=== PATIENT | female | born 1995 ===

== ENCOUNTER 2017-05-06 14:16 | Emergency (ER) | payer BC ==
[2017-05-06 14:22] VITALS: TEMP 97.3; O2SAT 100
--- NOTE | 2017-05-06 14:32 | ED PDOC ---
HPI: Abdomen Time Seen by Provider: 05/06/17 14:32 Chief Complaint (Nursing): Abdominal Pain Chief Complaint (Provider): abd pain History Per: Patient Additional Complaint(s): 22-year-old female presents to emergency department with abdominal pain, nausea , vomiting and diarrhea that started yesterday. Patient was evaluated this morning at urgent care center and was told to come to ER for possible appendicitis. Patient states that yesterday pain was localized to periumbilical region and now has traveled to right lower quadrant. She denies any known fever. Patient has no appetite and is unable to keep any liquids or solids down. Pain as an 8 out of 10. She denies any urinary symptoms. Past Medical History Reviewed: Historical Data, Nursing Documentation, Vital Signs Vital Signs: Last Vital Signs Temp 97.3 F L 05/06/17 14:22 Pulse 94 H 05/06/17 14:22 Resp 21 05/06/17 14:22 BP 140/71 05/06/17 14:22 Pulse Ox 100 05/06/17 15:49 - Medical History PMH: Anxiety, Asthma Other PMH: endometriosis - Surgical History Surgical History: Cholecystectomy - Family History Family History: States: No Known Family Hx - Living Arrangements Living Arrangements: With Family - Social History Current smoker - smoking cessation education provided: No Alcohol: None Drugs: Denies - Home Medications Home Medications: Ambulatory Orders Medication Instructions Recorded Albuterol Sulfate [Proventil Hfa] 2 puff IH Q6H PRN 03/12/15 Amoxicillin/Clavulanate [Augmentin 1 tab PO Q12 #14 tab 03/14/15 875 MG-125 MG] oxyCODONE/Acetaminophen [Percocet 1 tab PO Q4 PRN #0 tab 03/14/15 5/325 mg Tab] Ondansetron [Zofran Odt] 4 mg PO ASDIR PRN #10 odt 05/06/17 - Allergies Allergies/Adverse Reactions: Allergies Allergy/AdvReac Type Severity Reaction Status Date / Time apple Allergy RASH Verified 05/06/17 14:23 corn Allergy RASH Verified 05/06/17 14:23 latex Allergy URTICARIA Verified 05/06/17 14:23 peanut Allergy ANAPHYLAXIS Verified 05/06/17 14:23 shellfish derived Allergy SHORTNESS Verified 05/06/17 14:23 OF BREATH Review of Systems ROS Statement: Except As Marked, All Systems Reviewed And Found Negative Constitutional: Negative for: Fever, Chills, Weakness Cardiovascular: Negative for: Chest Pain Respiratory: Negative for: Cough Gastrointestinal: Positive for: Nausea, Vomiting, Abdominal Pain, Diarrhea. Negative for: Constipation Genitourinary Female: Negative for: Dysuria, Vaginal Discharge, Vaginal Bleeding Physical Exam - Reviewed Nursing Documentation Reviewed: Yes Vital Signs Reviewed: Yes - Physical Exam Head Exam: Positive for: ATRAUMATIC, NORMAL INSPECTION, NORMOCEPHALIC Skin: Negative for: Rash Eye Exam: Positive for: Normal appearance ENT: Positive for: Normal ENT Inspection Cardiovascular/Chest: Positive for: Regular Rate, Rhythm Respiratory: Positive for: Normal Breath Sounds Gastrointestinal/Abdominal: Positive for: Other (Obese abdomen with contrast periumbilical region and right lower quadrant, positive rebound, no guarding, normoactive bowel sounds in all 4 quadrants) Back: Negative for: L CVA Tenderness, R CVA Tenderness Extremity: Positive for: Normal ROM Neurologic/Psych: Positive for: Alert, Oriented - Laboratory Results Result Diagrams: 05/06/17 15:15 05/06/17 15:15 Urine POC: Negative Urine dip results: Negative for: Leukocyte Esterase, Blood, Nitrate, Ketones, Glucose, Bilirubin, Protein - ECG O2 Sat by Pulse Oximetry: 100 Pulse Ox Interpretation: Normal - Other Rad CT abd and pelvis with IV contrast X-Ray: Read By Radiologist X-Ray Interpretation: see below Medical Decision Making Medical Decision Makin22 year old with abdominal pain Plan: CBC CMP Lipase Urine dip test CT abd and pelvis with IV contrast only IVF IV toradol CT: IMPRESSION: 1. No acute abdominal or pelvic abnormality. Specifically, no CT evidence for acute appendicitis. 2. Mesenteric, common an external right iliac and bilateral inguinal lymphadenopathy, nonspecific and could represent nonspecific infectious/ inflammatory adenitis however neoplastic etiology such as lymphoma cannot be entirely excluded. Clinical correlation and follow-up is advised. 3. Fatty liver. Patient is aware of all diagnostic testing results, all questions answered. Patient feels much better after pain medication given. She is now tolerating juice and water without further emesis. Nausea has resolved. Patient was given copy of CAT scan and was instructed to follow up with primary doctor. Advised NSAID's for pain and prescription for Zofran provided. Disposition - Clinical Impression Clinical Impression: Gastroenteritis, Mesenteric adenitis - Patient ED Disposition Is Patient to be Admitted: No Counseled Patient/Family Regarding: Studies Performed, Diagnosis, Need For Followup, Rx Given - Disposition Referrals: Jadon Cole MD [Family Provider] - Disposition: Routine/Home Disposition Time: 18:18 Condition: STABLE Additional Instructions: Take prescription medications as directed as needed for nausea and vomiting. [id number] Tylenol or Advil for abdominal pain as needed. Follow bland diet and drink plenty of clear liquids. Follow up with primary doctor in 1-[address] results with primary doctor. Return any time if acutely worse. Prescriptions: Ondansetron [Zofran Odt] 4 mg PO ASDIR PRN #10 odt PRN Reason: Nausea/Vomiting Instructions: Mesenteric Adenitis (ED), Gastroenteritis (ED) Forms: [employer] (Mongolian), [facility] ED School/Work Excuse Results - Lab Results Lab Results: 05/06/17 05/06/17 15:15 15:15 WBC 14.6 H RBC 5.39 H Hgb 11.2 L Hct 35.9 MCV 66.6 L D MCH 20.8 L MCHC 31.2 L RDW 17.9 H Plt Count 366 D MPV 8.8 Neut % (Auto) 59.2 Lymph % (Auto) 26.8 Davie % (Auto) 5.9 Eos % (Auto) 7.4 H Baso % (Auto) 0.7 Neut # 8.6 H Lymph # 3.9 Davie # 0.9 H Eos # 1.1 H Baso # 0.1 Sodium 141 Potassium 3.7 Chloride 103 Carbon Dioxide 28 Anion Gap 14 BUN 11 Creatinine 0.7 Est GFR ( Amer) > 60 Est GFR (Non-Af Amer) > 60 Random Glucose 82 Calcium 8.9 Total Bilirubin 0.3 AST 33 ALT 58 H D Alkaline Phosphatase 104 Total Protein 8.1 Albumin 4.2 Globulin 3.9 Albumin/Globulin Ratio 1.1 Lipase 38
[2017-05-06] MEDS ORDERED: Sodium Chloride 0.9% 1,000 ML IV STA (15:06)
[2017-05-06 15:27] LABS: BASO # 0.1 K/uL (0.0-0.2); BASO % 0.7 % (0.0-2.0); EOS # 1.1 K/uL (0.0-0.7); EOS % 7.4 % (0.0-4.0); HEMATOCRIT 35.9 % (34.0-47.0); LYMPH # 3.9 K/uL (1.0-4.3); LYMPH % 26.8 % (20.0-40.0); MEAN CELL VOLUME 66.6 fl (81.0-99.0); MEAN CORPUSCULAR HEMOGLOBIN 20.8 pg (27.0-31.0); MEAN CORPUSCULAR HGB CONC 31.2 g/dL (33.0-37.0); MEAN PLATELET VOLUME 8.8 fl (7.2-11.7); MONO # 0.9 K/uL (0.0-0.8); MONO % 5.9 % (0.0-10.0); NEUT # 8.6 K/uL (1.8-7.0); NEUT % 59.2 % (50.0-75.0); RED CELL DISTRIBUTION WIDTH 17.9 % (11.5-14.5); WHITE BLOOD COUNT 14.6 K/uL (4.8-10.8)
[2017-05-06 15:39] LABS: ALB/GLOB RATIO 1.1 (1.0-2.1); ALKALINE PHOSPHATASE 104 U/L (38-126); ALT/SGPT 58 U/L (9-52); AST/SGOT 33 U/L (14-36); BILIRUBIN,TOTAL 0.3 mg/dl (0.2-1.3); BLOOD UREA NITROGEN 11 mg/dl (7-17); CALCIUM 8.9 mg/dL (8.4-10.2); CARBON DIOXIDE 28 mmol/L (22-30); CHLORIDE 103 mmol/L (98-107); GFR AFRICAN-AMERICAN > 60; GLUCOSE,RANDOM 82 mg/dL (65-105); LIPASE 38 U/L (23-300); POTASSIUM 3.7 MMOL/L (3.6-5.0); SODIUM 141 mmol/l (132-148); TOTAL PROTEIN 8.1 G/DL (6.3-8.2)
[2017-05-06] MEDS ORDERED: Iohexol 300 100 ML IJ ONE ×2 (16:14→16:31)
--- NOTE | 2017-05-06 17:06 | CT ---
PROCEDURE: CT Abdomen and Pelvis with contrast HISTORY: periumbilical and RLQ abd pain COMPARISON: None. TECHNIQUE: CT scan of the abdomen and pelvis was performed after intravenous administration of contrast. Oral contrast was not administered. Coronal and sagittal reformatted images were obtained. Contrast dose: 95 mL Omnipaque 300 Radiation dose: Total exam DLP = 1154.27 mGy-cm. This CT exam was performed using one or more of the following dose reduction techniques: Automated exposure control, adjustment of the mA and/or kV according to patient size, and/or use of iterative reconstruction technique. FINDINGS: LOWER THORAX: The lung bases are clear. LIVER: There is diffuse fatty infiltration in the liver. No gross lesion or ductal dilatation. GALLBLADDER AND BILE DUCTS: Surgically absent. PANCREAS: Normal in size with homogeneous enhancement. No gross lesion or ductal dilatation. SPLEEN: Normal in size and appearance. ADRENALS: No discrete nodule. KIDNEYS AND URETERS: Normal in size with homogeneous enhancement. No hydronephrosis. No solid mass. VASCULATURE: No aortic aneurysm. BOWEL: The small bowel loops are normal in caliber. The colon is unremarkable. There is no bowel dilatation or obstruction. APPENDIX: Normal appendix. PERITONEUM: No free fluid. No free air. LYMPH NODES: There is mild diffuse enlargement of mesenteric lymph nodes, most prominent in the right lower quadrant. There is also enlargement of the common iliac in external right iliac chain lymph nodes. Bilateral inguinal lymph nodes are also enlarged. BLADDER: Grossly normal in appearance. REPRODUCTIVE: The uterus is normal in size. BONES: No acute fracture. Within normal limits for the patient's age. OTHER FINDINGS: None. IMPRESSION: 1. No acute abdominal or pelvic abnormality. Specifically, no CT evidence for acute appendicitis. 2. Mesenteric, common an external right iliac and bilateral inguinal lymphadenopathy, nonspecific and could represent nonspecific infectious/inflammatory adenitis however neoplastic etiology such as lymphoma cannot be entirely excluded. Clinical correlation and follow-up is advised. 3. Fatty liver.
[2017-05-06 18:46] VITALS: BP 134/84; PULSE 90; RESP 18
== END 2017-05-06 19:07 | disposition home or self-care (01) ==
LOC: H.ER 14:16
DX: I88.0 Nonspecific mesenteric lymphadenitis (principal); K52.9 Noninfective gastroenteritis and colitis, unspecified; K76.0 Fatty (change of) liver, not elsewhere classified; F41.9 Anxiety disorder, unspecified; J45.909 Unspecified asthma, uncomplicated
CPT/HCPCS: 74177; 80053; 81025; 83690; 85025; 96360; 99283; J1885; J7040; Q9967